=== PATIENT | male | born 1940 | race Caucasian/White ===

== ENCOUNTER 2024-01-14 08:36 | Emergency (ER) | payer MEDICARE, OTHER, SELFPAY ==
[2024-01-14] VITALS (10 sets, daily range): BP systolic 120–143; BP diastolic 76–93; BMI 26.1
--- NOTE | 2024-01-14 09:00 | EDRN ---
Jeanine SONG in room w/ pt at this time.
--- NOTE | 2024-01-14 09:07 | ED.GENMED ---
History of Present Illness
General
Chief Complaint: Bowel Problem
Source: patient
Exam Limitations: none
Time Seen by Provider: 01/14/24 08:50
Travel History
Have you had any contact with someone who has COVID-19?: No
Do you have any symptoms of coronavirus? Fever > 100 degrees, chills, cough, shortness of breath, sore throat, loss of taste or smell, muscle aches, or headache?: No
History of Present Illness
History of Present Illness:
83-year-old male on Eliquis and atorvastatin presents with constipation that he has been struggling with for about 2 weeks. He has been using MiraLAX increasing his fiber he tried an Ex-Lax pill as well as a fleets enema with poor results. He
notes mild abdominal distention no vomiting. He has dealt with this in the past. No blood in the stool. No fevers. No other complaints at this time
Past History
Past History
ED Past Medical History: Arrthythmia (afib), Cancer (colon), HTN, Hypercholesterolemia and Other (TIA, anemia)
Social History
Tobacco: Former smoker
Alcohol: Occasional
Drug: None
Personal:
Living: with family
Employment: Retired
Family History
Family History: Other (Noncontributory)
Phy Exam
Physical Exam
Physical Exam:
General: Well-appearing male no acute respiratory distress
HEENT: Normocephalic atraumatic
Heart: Regular rate and rhythm no murmurs
Lungs: Clear to auscultation bilaterally no wheezing
Abdomen is soft nontender nondistended no guarding or rebound normal bowel sounds
Extremities: No cyanosis or edema
Rectal exam: No external hemorrhoids. No stool is palpated within the rectum.
Course
Orders/Labs/Results
Orders:
Orders
01/14/24 09:06
CR Abdomen - 2 Views Urgent
Comment:
Reason For Exam: constipation
01/14/24 09:25
Enema- Treatment ONCE
Type: Milk of Molasses
01/14/24 14:16
CT Abd/pelvis W Iv Cont Urgent
Comment:
Reason For Exam: abdominal pain
01/14/24 14:46
Complete Blood Count/With Diff Urgent
Comprehensive Metabolic Panel Urgent
01/14/24 16:46
Magnesium Citrate [Citroma] 300 ml PO ONCE ONE
Abnormal Lab Results
01/14/24
14:46
RBC 4.44 L 10^6/uL
(4.70-6.10)
MPV 11.3 H fL
(7.4-10.4)
Lymphocytes % 19.5 L %
(20.5-51.1)
Glucose 100 H mg/dl
(70-99)
Total Protein 5.7 L g/dl
(6.3-8.2)
Albumin 3.3 L g/dl
(3.5-5.0)
01/14/24 14:46
01/14/24 14:46
Vital Signs
Initial and Last Documented VS:
Initial Vital Signs
Temp Pulse Resp BP Pulse Ox
97.9 F 69 16 136/93 98
01/14/24 08:42 01/14/24 08:42 01/14/24 08:42 01/14/24 08:42 01/14/24 08:42
Last Documented Vital Signs
Temp Pulse Resp BP Pulse Ox
97.9 F 72 16 133/88 97
01/14/24 08:42 01/14/24 16:20 01/14/24 16:20 01/14/24 16:20 01/14/24 16:20
MDM/Problems Addressed
Differential Diagnosis Includes:
Constipation. Abdomen exam is benign. Do not suspect colitis given exam. Rectal exam without any stool to manually disimpact. Will check x-rays
*Critical Care Note
Total Time (30-74mins, 75-104mins- exclusive of procedures): Not Applicable
Update Note
Update Note:
Patient with minimal relief after milk of molasses enema still with some abdominal discomfort. Given age and generalized discomfort will order CT scan to evaluate for any evidence of colitis or partial obstruction.
CT read demonstrates stool in the colon distally
With distention of the colon with no sign of sterile coral colitis. There is slight increased size of the abdominal aortic aneurysm now measuring 4.5 cm. There are lung nodules. There are signs of chronic pancreatitis. Relayed all this
information to the patient and copy of his CAT scan was to the patient. Will prescribe magnesium citrate to be used at home for constipation. Return precautions were given.
ED Attending Note
-
Portions of this chart may have been created with voice recognition software.� Occasional wrong word or��sound alike� substitutions may have occurred due to the inherent limitations of voice recognition software.
Discharge Plan
Departure
Patient Disposition: Home (Routine Discharge)
Date of Disposition: 01/14/24
Time of Disposition: 16:47
Patient with high blood pressure during this ER visit?: No
Discharge Problem:
Acute constipation
Instructions: Constipation, Adult (DC)
Prescriptions:
No Action
Eliquis 5 MG tablet
5 mg PO BID Qty: 60 0RF
atorvastatin 40 MG tablet
40 mg PO QPM
Hold Instructions: Resume on 08/10/23. Resume this ONLY AFTER you finish your Paxlovid medication
Trelegy Ellipta 100-62.5-25 mcg Blister With Device
1 inh INHALATION R DAILY
Citrucel 500 mg Tablet
1,000 mg PO MEALS
albuterol sulfate [Ventolin HFA] 90 mcg/actuation HFA aerosol inhaler
2 puff inhalation R Q6HPRN PRN (Reason: sob)
Eliquis 2.5 mg Tablet
2.5 mg PO BID Qty: 7 0RF
Rx Instructions:
First dose on 08/06/23 evening, patient is to resume his 5 mg BID dosing on 08/10/23 (after finishing Paxlovid)
Paxlovid 300 mg (150 mg x 2)-100 mg Tablets,Dose Pack
See Rx Instructions .ROUTE .COMPLEX Qty: 7 0RF
Rx Instructions:
7 doses (starting on 08/06/23 evening) of the 300-100 mg tablet. Last dose should be on 08/09/23 evening.
Referrals:
Hiram Fish MD [Family Provider] -
Activity Restrictions/Additional Instructions:
Use magnesium citrate as directed. Continue with MiraLAX afterwards. Drink plenty of fluids. A report of your CAT scan was printed and given to you with discharge paperwork. Please follow-up with family doctor otherwise return here for
increasing pain fever vomiting or other concerning findings
Interventions
Interventions:
*Risk Screen - Suicide Last Done: 01/14/24 09:09
*General Assessment Last Done: 01/14/24 09:09
*Neglect/Abuse Screening Last Done: 01/14/24 09:09
ED- Fall Risk Assessment Last Done: 01/14/24 09:09
*ED COVID-19 Vaccine History Last Done: 01/14/24 08:46
FZ-Odnrck-Kituyrbqak Assessment Last Done: 01/14/24 09:09
--- NOTE | 2024-01-14 09:52 | EDRN ---
Ana SONG in room w/ pt.
--- NOTE | 2024-01-14 10:47 | EDRN ---
No whole milk or molasses in ED. THis RN called dietary to send whole milk and molasses at this time.
[2024-01-14 14:54] LABS: % Basophils 0.4 % (0-2); % Eosinophils 2.3 % (0-6); % Immature Granulocytes 0.4 % (0-0.5); % Lymphocytes 19.5 % (20.5-51.1); % Monocytes 7.6 % (1.7-9.3); % Neutrophils 69.8 % (42.2-75.2); Absolute Eosinophils 0.2 10^3/uL (0-0.7); Absolute Lymphocytes 1.4 10^3/uL (1.2-3.4); Absolute Monocytes 0.6 10^3/uL (0.1-0.6); Absolute Neutrophils 5.1 10^3/uL (1.4-6.5); Hematocrit 40.1 % (39.0-52.0); Hemoglobin 13.5 g/dL (13.0-18.0); Mean Corp Hgb Conc. 33.7 g/dL (33.0-37.0); Mean Corpuscular Hgb 30.4 pg (27.0-31.0); Mean Corpuscular Volume 90.3 fL (80.0-94.0); Mean Platelet Volume 11.3 fL (7.4-10.4); Nucleated Red Blood Cells % 0 % (-); Platelet Count 212 10^3/uL (130-400); Red Blood Cell Count 4.44 10^6/uL (4.70-6.10); Red Cell Dist. Width 13.9 % (11.5-14.5); White Blood Cell Count 7.3 10^3/uL (4.8-10.8)
[2024-01-14 15:11] LABS: ALT (SGPT) 31 U/L (0-50); AST (SGOT) 24 U/L (17-59); Albumin 3.3 g/dl (3.5-5.0); Alkaline Phosphatase 79 U/L (38-126); Blood Urea Nitrogen 17 mg/dl (9-20); Calcium 9.2 mg/dl (8.4-10.2); Carbon Dioxide 29 mmol/L (22-30); Chloride 106 mmol/L (98-107); Estimated Creatinine Clearance 86 ml/min; Glucose 100 mg/dl (70-99); Potassium 4.6 mmol/L (3.5-5.1); Sodium 138 mmol/L (135-145); Total Protein 5.7 g/dl (6.3-8.2); eGFR > 60.00
[2024-01-14] MEDS: CITROMA 300 ML PO (17:15)
== END 2024-01-14 17:25 | disposition home or self-care (01) ==
LOC: EMR 08:36
PROVIDERS: Physician Assistant; EMERGENCY PHYSICIAN Emergency Medicine; FAMILY PHYSICIAN Family Medicine
DX: K59.09 Other constipation (principal); I10 Essential (primary) hypertension; I71.43 Infrarenal abdominal aortic aneurysm, without rupture; Z87.891 Personal history of nicotine dependence
CPT/HCPCS: 99285; 74019; 74177; 80053; 85025; Q9967

== ENCOUNTER 2024-01-20 09:39 | Emergency (ER) | payer MEDICARE, OTHER, SELFPAY ==
[2024-01-20 09:41] VITALS: BP 148/78
[2024-01-20 10:26] VITALS: BMI 27.9
[2024-01-20 10:30] VITALS: BP 134/80
[2024-01-20 10:44] LABS: % Basophils 0.5 % (0-2); % Eosinophils 2.6 % (0-6); % Immature Granulocytes 0.4 % (0-0.5); % Lymphocytes 14.6 % (20.5-51.1); % Monocytes 8.8 % (1.7-9.3); % Neutrophils 73.1 % (42.2-75.2); Absolute Eosinophils 0.2 10^3/uL (0-0.7); Absolute Lymphocytes 1.1 10^3/uL (1.2-3.4); Absolute Monocytes 0.7 10^3/uL (0.1-0.6); Absolute Neutrophils 5.6 10^3/uL (1.4-6.5); Hematocrit 40.9 % (39.0-52.0); Mean Corp Hgb Conc. 34.2 g/dL (33.0-37.0); Mean Corpuscular Hgb 30.6 pg (27.0-31.0); Mean Corpuscular Volume 89.5 fL (80.0-94.0); Mean Platelet Volume 11.5 fL (7.4-10.4); Nucleated Red Blood Cells % 0 % (-); Platelet Count 219 10^3/uL (130-400); Red Blood Cell Count 4.57 10^6/uL (4.70-6.10); Red Cell Dist. Width 13.6 % (11.5-14.5); White Blood Cell Count 7.7 10^3/uL (4.8-10.8)
--- NOTE | 2024-01-20 10:50 | ED.GENMED ---
History of Present Illness
General
Chief Complaint: Bowel Problem
Source: patient
Exam Limitations: none
Time Seen by Provider: 01/20/24 09:58
Nursing documentation reviewed up to this point in time: agreed with
Travel History
Have you had any contact with someone who has COVID-19?: No
Do you have any symptoms of coronavirus? Fever > 100 degrees, chills, cough, shortness of breath, sore throat, loss of taste or smell, muscle aches, or headache?: No
History of Present Illness
History of Present Illness:
83-year-old male on Eliquis for A-fib, atorvastatin, colon resection for CA 2017, presents with constipation states last normal bowel movement was 2 to 3 weeks ago, he has had a few very small ones since. He was seen here 6 days ago for
constipation Had obstruction series which showed no evidence of obstruction, had abdominal CT which showed moderate stool throughout the colon, Questionable adhesions on this study.
Pt denies F/C/N/V. Does feel bloated and constipated. Poor appetite for these reasons.
Past History
Past History
ED Past Medical History: Arrthythmia (afib), Cancer (colon), COPD, HTN, Hypercholesterolemia and Other (TIA, anemia)
ED Past Surgical History: Bowel resection (Colon cancer, colon resection 2017)
Social History
Tobacco: Former smoker
Alcohol: Occasional
Drug: None
Personal:
Living: with family
Employment: Retired
Family History
Family History: Other (Noncontributory)
Review of Systems
Review of Systems
Allergies reviewed?: Yes
All Other Systems: ROS reviewed and negative except as documented in HPI and ROS
Constitutional: Denies fever
Respiratory: Denies trouble breathing
Cardiac: Denies chest pain
ABD/GI: Reports abdominal pain, constipated and anorexia; Denies nausea, vomiting, bloody stools or black stools
: Denies dysuria or difficulty voiding
Musculoskeletal: Reports no symptoms
Skin: Reports no symptoms
Neurological: Reports no symptoms
Phy Exam
Physical Exam
Physical Exam:
GENERAL: No acute distress. A&Ox3.
CONSTITUTIONAL: Afebrile.
EYES: PERRL, conjunctivae normal
Neck: Supple
ENMT: moist mucus membranes, Pharynx nl
RESPIRATORY: Regular respirations, nonlabored, lungs clear.
CARDIOVASCULAR: Regular rate and rhythm, no murmurs, no rubs.
GI: Soft, distended, nontender, normal BS
Rectal: Minimal amount of soft brown stool on gloved finger, hematest positive. No palpable stool in rectal vault.
MUSCULOSKELETAL: Moves with ease. Well perfused.
SKIN: Warm, dry, pink
PSYCH: Normal mood and affect. Well kept, interactive and appropriate
NEUROLOGIC: Awake, alert and oriented. No focal neurological deficits
Course
Orders/Labs/Results
Orders:
Orders
01/20/24 10:32
Complete Blood Count/With Diff Urgent
Comprehensive Metabolic Panel Urgent
Lipase Urgent
01/20/24 10:55
CT Abd/pel W Iv And Oral Contr Urgent
Comment:
Reason For Exam: worse abd pain, constipation since Sunday's visit
Iohexol [Omnipaque] See Protocol PO NOW STA
01/20/24 10:58
0.9% Sodium Chloride 1000 ml [Nss] 1,000 ml IV BOLUS
01/20/24 15:43
Lactulose [Duphalac/Chronulac] 20 grams PO NOW STA
Abnormal Lab Results
01/20/24
10:32
RBC 4.57 L 10^6/uL
(4.70-6.10)
MPV 11.5 H fL
(7.4-10.4)
Absolute Lymphs (auto) 1.1 L 10^3/uL
(1.2-3.4)
Absolute Monos (auto) 0.7 H 10^3/uL
(0.1-0.6)
Lymphocytes % 14.6 L %
(20.5-51.1)
Chloride 109 H mmol/L
(98-107)
Total Protein 5.9 L g/dl
(6.3-8.2)
Albumin 3.4 L g/dl
(3.5-5.0)
01/20/24 10:32
01/20/24 10:32
Vital Signs
Initial and Last Documented VS:
Initial Vital Signs
Temp Pulse Resp BP Pulse Ox
97.5 F 67 18 148/78 97
01/20/24 09:41 01/20/24 09:41 01/20/24 09:41 01/20/24 09:41 01/20/24 09:41
Last Documented Vital Signs
Temp Pulse Resp BP Pulse Ox
97.9 F 68 18 138/80 98
01/20/24 16:15 01/20/24 16:15 01/20/24 16:15 01/20/24 16:15 01/20/24 16:15
Inspector Rough Castings consulted with Physician
Inspector Rough Castings consulted with physician?: Yes
Name of Physician Consulted: Nathen
MDM/Problems Addressed
Differential Diagnosis Includes:
Constipation, bowel obstruction
MDM/Problems Addressed:
83-year-old male on Eliquis for A-fib, atorvastatin, colon resection for CA 2017, presents with constipation states last normal bowel movement was 2 to 3 weeks ago, he has had a few very small ones since. He was seen here 6 days ago for
constipation Had obstruction series which showed no evidence of obstruction, had abdominal CT which showed moderate stool throughout the colon, Questionable adhesions on this study.
Pt denies F/C/N/V. Does feel bloated and constipated. Poor appetite for these reasons.
01/20/2024 1126 AM
CBC, CMP unremarkable
Lipase WNL
Case discussed with Dr. Sena who agrees with a repeat CAT scan with p.o. contrast due to the fact that he could have adhesions/bowel obstruction
Pt updated and in agreement.
01/20/[address] abdomen pelvis with p.o. and IV contrast: Radiology report read: IMPRESSION:
No acute inflammatory process within the abdomen or pelvis. No bowel obstruction. Mild colonic fecal burden. Diverticulosis without acute diverticulitis. No obstructive uropathy.
Stable tortuosity and diffuse ectasia of the abdominal aorta. Stable saccular aneurysm of the mid abdominal aorta as well as the mid to distal abdominal aorta. No dissection.
Other stable chronic findings, as described.
Reviewed CAT scan results with patient and
He still feels bloated, I recommended [id number] Gas-X, gave a dose of lactulose here and a prescription to his pharmacy to use it for the next week if needed
Instructed to see his PCP in 3 to 4 days if he is not much better by then.
*Critical Care Note
Total Time (30-74mins, 75-104mins- exclusive of procedures): Not Applicable
ED Attending Note
-
Portions of this chart may have been created with voice recognition software.� Occasional wrong word or��sound alike� substitutions may have occurred due to the inherent limitations of voice recognition software.
Discharge Plan
Departure
Patient Disposition: Home (Routine Discharge)
Date of Disposition: 01/20/24
Time of Disposition: 15:44
Patient with high blood pressure during this ER visit?: No
Condition: Good
Discharge Problem:
Abdominal pain, Constipation
Instructions: Constipation, Adult (DC), Abdominal Pain
Prescriptions:
New
lactulose 20 gram/30 mL solution
20 g PO DAILY PRN (Reason: Constipation) Qty: 300 0RF
No Action
Eliquis 5 MG tablet
5 mg PO BID Qty: 60 0RF
atorvastatin 40 MG tablet
40 mg PO QPM
Hold Instructions: Resume on 08/10/23. Resume this ONLY AFTER you finish your Paxlovid medication
Trelegy Ellipta 100-62.5-25 mcg Blister With Device
1 inh INHALATION R DAILY
Citrucel 500 mg Tablet
1,000 mg PO MEALS
albuterol sulfate [Ventolin HFA] 90 mcg/actuation HFA aerosol inhaler
2 puff inhalation R Q6HPRN PRN (Reason: sob)
Eliquis 2.5 mg Tablet
2.5 mg PO BID Qty: 7 0RF
Rx Instructions:
First dose on 08/06/23 evening, patient is to resume his 5 mg BID dosing on 08/10/23 (after finishing Paxlovid)
Paxlovid 300 mg (150 mg x 2)-100 mg Tablets,Dose Pack
See Rx Instructions .ROUTE .COMPLEX Qty: 7 0RF
Rx Instructions:
7 doses (starting on 08/06/23 evening) of the 300-100 mg tablet. Last dose should be on 08/09/23 evening.
Referrals:
Hiram Fish MD [Family Provider] -
Aiden Eden MD [Active] - Next open appointment
Activity Restrictions/Additional Instructions:
As we discussed, there is nothing worrisome in your workup here today, specifically no significant amount of stool in your colon, no obstruction in your colon.
You were given a dose of lactulose here today and I sent a prescription to your pharmacy that you can take it daily as needed for bowel movement.
Since you have not been eating much, there is probably not much in your bowels to pass
For your feeling of bloating and distention you can try Gas-X [id number] medication and perhaps the lactulose will help.
See your GI Dr. Eden within the next 2 weeks if your symptoms are not improving
Interventions
Interventions:
*Risk Screen - Suicide Last Done: 01/20/24 10:27
*General Assessment Last Done: 01/20/24 09:41
*Neglect/Abuse Screening Last Done: 01/20/24 10:27
ED- Fall Risk Assessment Last Done: 01/20/24 10:28
*ED COVID-19 Vaccine History Last Done: 01/20/24 09:41
*Nursing Disposition Last Done: 01/20/24 16:15
IA-Zlmphs-Grpwhklexb Assessment Last Done: 01/20/24 10:28
Discharge Date and Time
Discharge Date/Time: 01/20/24 16:16
[2024-01-20 10:52] LABS: ALT (SGPT) 32 U/L (0-50); AST (SGOT) 30 U/L (17-59); Albumin 3.4 g/dl (3.5-5.0); Alkaline Phosphatase 74 U/L (38-126); Blood Urea Nitrogen 14 mg/dl (9-20); Calcium 9.5 mg/dl (8.4-10.2); Carbon Dioxide 25 mmol/L (22-30); Chloride 109 mmol/L (98-107); Estimated Creatinine Clearance 76 ml/min; Glucose 94 mg/dl (70-99); Lipase 77 U/L (23-300); Potassium 4.9 mmol/L (3.5-5.1); Sodium 136 mmol/L (135-145); Total Bilirubin 0.8 mg/dl (0.2-1.3); Total Protein 5.9 g/dl (6.3-8.2); eGFR > 60.00
[2024-01-20 11:00] VITALS: BP 128/93
[2024-01-20] MEDS: NSS 1000 IV (11:09)
[2024-01-20] MEDS: OMNIPAQUE 50 ML PO (11:10)
[2024-01-20 14:23] VITALS: BP 127/71
[2024-01-20 15:00] VITALS: BP 139/83
[2024-01-20] MEDS: DUPHALAC/CHRONULAC 20 GRAMS PO (16:03)
[2024-01-20 16:15] VITALS: BP 138/80
== END 2024-01-20 16:16 | disposition home or self-care (01) ==
LOC: EMR 09:39
PROVIDERS: Registered Nurse; EMERGENCY PHYSICIAN Student in an Organized Health Care Education/Training Program; FAMILY PHYSICIAN Family Medicine
DX: R10.9 Unspecified abdominal pain (principal); K59.00 Constipation, unspecified; I48.91 Unspecified atrial fibrillation; J44.9 Chronic obstructive pulmonary disease, unspecified; I10 Essential (primary) hypertension; E78.00 Pure hypercholesterolemia, unspecified; D64.9 Anemia, unspecified; Z79.01 Long term (current) use of anticoagulants; Z85.038 Personal history of other malignant neoplasm of large intestine; Z86.73 Personal history of transient ischemic attack (TIA), and cerebral infarction without residual deficits; Z87.891 Personal history of nicotine dependence
CPT/HCPCS: 99284; 96360; 74177; 80053; 83690; 85025; Q9967

== ENCOUNTER → 2024-06-04 09:57 | Outpatient (REF) | payer MEDICARE, OTHER, SELFPAY | LOC: RCS 09:57 | PROVIDERS: ATTENDING PHYSICIAN Internal Medicine Cardiovascular Disease; FAMILY PHYSICIAN Family Medicine | DX: I48.0 Paroxysmal atrial fibrillation (principal) | CPT/HCPCS: 93005 ==

== ENCOUNTER 2024-09-18 02:57 | Inpatient (IN) | payer MEDICARE, OTHER, SELFPAY ==
[2024-09-17] VITALS (15 sets, daily range): BP systolic 69–130; BP diastolic 51–72; BMI 26.2
[2024-09-17 21:06] LABS: % Basophils 0.5 % (0-2); % Eosinophils 3.5 % (0-6); % Immature Granulocytes 0.4 % (0-0.5); % Lymphocytes 14.1 % (20.5-51.1); % Monocytes 7.5 % (1.7-9.3); Absolute Basophils 0.1 10^3/uL (0-0.2); Absolute Eosinophils 0.4 10^3/uL (0-0.7); Absolute Lymphocytes 1.5 10^3/uL (1.2-3.4); Absolute Monocytes 0.8 10^3/uL (0.1-0.6); Absolute Neutrophils 7.8 10^3/uL (1.4-6.5); Hematocrit 38.3 % (39.0-52.0); Hemoglobin 12.8 g/dL (13.0-18.0); Mean Corp Hgb Conc. 33.4 g/dL (33.0-37.0); Mean Corpuscular Hgb 30.3 pg (27.0-31.0); Mean Corpuscular Volume 90.5 fL (80.0-94.0); Mean Platelet Volume 11.2 fL (7.4-10.4); Nucleated Red Blood Cells % 0 % (-); Platelet Count 248 10^3/uL (130-400); Red Blood Cell Count 4.23 10^6/uL (4.70-6.10); Red Cell Dist. Width 14.3 % (11.5-14.5); White Blood Cell Count 10.6 10^3/uL (4.8-10.8)
[2024-09-17 21:23] LABS: ALT (SGPT) 26 U/L (0-50); AST (SGOT) 23 U/L (17-59); Albumin 3.3 g/dl (3.5-5.0); Alkaline Phosphatase 77 U/L (38-126); Blood Urea Nitrogen 14 mg/dl (9-20); Calcium 9.4 mg/dl (8.4-10.2); Carbon Dioxide 27 mmol/L (22-30); Chloride 107 mmol/L (98-107); Estimated Creatinine Clearance 68 ml/min; Glucose 127 mg/dl (70-99); Potassium 4.6 mmol/L (3.5-5.1); Sodium 141 mmol/L (135-145); Total Bilirubin 0.4 mg/dl (0.2-1.3); Total Protein 5.6 g/dl (6.3-8.2); eGFR > 60.00
[2024-09-17] MEDS: NSS 1000 IV (22:52)
[2024-09-18] VITALS (64 sets, daily range): BP systolic 58–163; BP diastolic 40–76; BMI 26.3
[2024-09-18] MEDS: NSS 500 IV ×2 (00:10→02:07)
--- NOTE | 2024-09-18 00:12 | ED.GENMED ---
History of Present Illness
General
Chief Complaint: Fall
Source: patient and family
Time Seen by Provider: 09/17/24 21:06
History of Present Illness
History of Present Illness:
This is an 84-year-old male who presents after he fell at home. He states he sat a plastic chair at home outside and it broke and he fell onto his right side. Patient states he then was able to stand up and walk. He was able to walk the chair to
the trash cans and back in. He then sat in his recliner and shortly after that pain got worse and he could not get up. Patient presents complaining of pain in the right hip region. He is on Eliquis. He denies head injury. No neck pain or back
pain. No abdominal pain.
Past History
Past History
ED Past Medical History: Arrthythmia (afib), Cancer (colon), COPD, HTN, Hypercholesterolemia and Other (TIA, anemia)
ED Past Surgical History: Bowel resection (Colon cancer, colon resection 2017)
Social History
Tobacco: Former smoker
Alcohol: Occasional
Drug: None
Personal:
Living: with family
Employment: Retired
Family History
Family History: Other (Noncontributory)
Phy Exam
Physical Exam
Physical Exam:
CONSTITUTIONAL Vital signs reviewed, Patient alert and oriented to person, place and time. Well-appearing
HEAD atraumatic, normocephalic.
EYES eyelids normal to inspection, Extraocular muscles intact, Conjunctiva normal, Sclera normal.
NECK normal range of motion, Trachea midline, no jugular venous distention.
RESP no respiratory distress
BACK No obvious deformities
UPPER EXTREMITY Gross Range of motion normal, gross motor strength normal
LOWER EXTREMITY Gross motor strength normal Does have mild pain with internal and external rotation of the hip. . Is able to mildly flex the right Limited due to pain.hip g shortening. No rotation.
NEURO Speech normal, No focal motor deficits include, [place] coma scale 15, Memory normal, Cranial Nerves intact to screening exam.
SKIN Skin warm, dry, and normal in color.
PSYCHIATRIC Patient oriented to person place and time, Normal affect.
Course
Orders/Labs/Results
Orders:
Orders
09/17/24 20:56
Type+Screen Urgent
Complete Blood Count/With Diff Urgent
Comprehensive Metabolic Panel Urgent
09/17/24 21:07
Hip, Right 2-3 Views [CR Hip - RT w/wo Pel 2-3 Vw*] Urgent
Comment:
Reason For Exam: fall
Include a pelvis x-ray?: Yes
09/17/24 22:52
0.9% Sodium Chloride 1000 ml [Nss] 1,000 ml IV BOLUS
09/17/24 23:41
Hydrocodone 5/APAP 325 [[place] 5/325] 2 tablet PO NOW STA
09/18/24 00:[address] Cta A/P W/Wo Urgent
Reason For Exam: fall, hypotensive, gluteal hematoma
Morphine Sulfate 4 mg IV NOW STA
09/18/24 00:12
0.9% Sodium Chloride 500 ml [Nss] 500 ml IV BOLUS
09/18/24 00:13
Prothrombin Complex(Pcc),Human [Kcentra] 2,549 unit Empty Viaflex Container 100 ml [Viaflex Empty Container] 0 ml IV NOW
Does patient have a dx of serious acute active bleeding?: Yes
Does patient have prior history of HIT?: No
09/18/24 00:34
Hemoglobin Urgent
09/18/24 01:10
* Blood Bank Products Urgent
Blood Bank Products: *Packed RBC Leuko(PRBC's)
Quantity: 2
Transfuse Today: Yes
Reason: Bleeding
09/18/24 01:44
HYDROmorphone [Dilaudid] 1 mg IV NOW STA
09/18/24 02:03
Admit/Transfer Patient As Directed
Co-Sign Provider:
Level of Care: Inpatient admission
Assign to:: ICU
Physician / Group: Uhmphrey
Diagnosis: Right Gluteal Hematoma, Acute Blood Loss Anemia
Reason for Hospitalization: Right Gluteal Hematoma, Acute Blood Loss Anemia
Expected length of stay greater than two midnights?: Yes
ELOS- Estimated Length of Stay in days: 3
I certify the patient meets the requirements for IP care: Yes
PRN Pain Medication Management As Directed
May give lesser potent ordered pain med per pt: Yes
preference::
Protocol:: Medication orders for pain may be administered in a
manner that supports deferring to patient preference
when the pt is:
- Requesting an ordered lesser potent pain medication.
Least to most potent pain medications are defined
as: acetaminophen < NSAID < tramadol < opioids
(morphine, oxycodone, hydromorphone).
- Requesting a lesser dose of the same medication IF
ORDERED.
- Requesting a less intrusive route of administration
if both routes are prescribed by the provider (PO <
IV).
09/18/24 02:04
Code Status As Directed
Resuscitation Status: Do not resuscitate
Reached after discussion with pt or family/Healthcare POA: Yes
DNR Bracelet Application ONCE
09/18/24 02:16
0.9% Sodium Chloride 500 ml [Nss] 500 ml IV BOLUS
0.9% Sodium Chloride 500 ml [Nss] 500 ml IV BOLUS
Abnormal Lab Results
09/17/24 09/18/24
20:56 00:34
RBC 4.23 L 10^6/uL
(4.70-6.10)
Hgb 12.8 L g/dL 9.9 L D g/dL
(13.0-18.0) (13.0-18.0)
Hct 38.3 L %
(39.0-52.0)
MPV 11.2 H fL
(7.4-10.4)
Absolute Neuts (auto) 7.8 H 10^3/uL
(1.4-6.5)
Absolute Monos (auto) 0.8 H 10^3/uL
(0.1-0.6)
Lymphocytes % 14.1 L %
(20.5-51.1)
Glucose 127 H mg/dl
(70-99)
Total Protein 5.6 L g/dl
(6.3-8.2)
Albumin 3.3 L g/dl
(3.5-5.0)
Crossmatch IS Only See Detail
09/18/24 00:34
09/17/24 20:56
Vital Signs
Initial and Last Documented VS:
Initial Vital Signs
Temp Pulse Resp BP Pulse Ox
98.3 F 81 18 130/72 97
09/17/24 20:53 09/17/24 20:53 09/17/24 20:53 09/17/24 20:53 09/17/24 20:53
Last Documented Vital Signs
Temp Pulse Resp BP Pulse Ox
97.8 F 68 17 100/60 97
09/18/24 02:29 09/18/24 02:29 09/18/24 02:29 09/18/24 02:29 09/18/24 02:29
MDM/Problems Addressed
MDM/Problems Addressed:
Gluteal hematoma, fall, contusion, therapeutic coagulopathy
*Radiology
Radiology exam reviewed: all reviewed NAD by ED Provider (X-rays show no fracture)
*Pulse Oximetry
Patient hypoxic: no
*Critical Care Note
Total Time (30-74mins, 75-104mins- exclusive of procedures): 45 minutes
Data Reviewed
Review of Other/Old Records Reveals: Discharge Summary (Discharge summary reviewed from July 2023)
Source: patient and spouse
Further Testing Considered But Not Given:
Consider CT head but patient did not hit his head and only fell to his hip
Patient Management
Discussion with other providers: Hospitalist and Ship Washer (Case discussed with interventional radiology)
Escalation/DeEscalation of care consider admission/obs:
84-year-old male who presents after he fell from a plastic chair. No fracture by imaging. On reassessment however the patient was mildly hypotensive and given some IV fluids. On attempt to stand him he got lightheaded and tilted. Reassessing his
right hip region I noted a large gluteal hematoma that developed. CT does show some extravasation. The case was discussed with interventional radiology. He recommends conservative measures for now. Kcentra given. Blood given in light of 3 g
drop. Patient has become normotensive but did have a vasovagal event after getting pain medications while in the emergency department.
ED Attending Note
-
Portions of this chart may have been created with voice recognition software.� Occasional wrong word or��sound alike� substitutions may have occurred due to the inherent limitations of voice recognition software.
Discharge Plan
Departure
Patient Disposition: Admit
Date of Disposition: 09/18/24
Time of Disposition: 00:12
Admit to: IMU
Presentation/result/management discussed w/ accepting MD/DO: Hospitalist
Discharge Problem:
gluteal hematoma, Hemorrhagic shock
Prescriptions:
No Action
Eliquis 5 MG tablet
5 mg PO BID Qty: 60 0RF
atorvastatin 40 MG tablet
40 mg PO QPM
Trelegy Ellipta 100-62.5-25 mcg Blister With Device
1 inh INHALATION R DAILY
albuterol sulfate [Ventolin HFA] 90 mcg/actuation HFA aerosol inhaler
2 puff inhalation R Q6HPRN PRN (Reason: sob)
acetaminophen [Tylenol Extra Strength] 500 mg Tablet
500 mg PO Q6HPRN PRN (Reason: mild pain)
docusate sodium [Colace] 100 mg Capsule
100 mg PO DAILYPRN PRN (Reason: constipation)
Referrals:
Hiram Fish MD [Family Provider] -
Interventions
Interventions:
*Risk Screen - Suicide Last Done: 09/17/24 21:00
*General Assessment Last Done: 09/17/24 21:00
*Neglect/Abuse Screening Last Done: 09/17/24 21:00
*ED COVID-19 Vaccine History Last Done: 09/17/24 21:00
ED-Musculoskeletal Assessment Last Done: 09/17/24 21:20
ED- Neurological Assessment Last Done: 09/17/24 21:20
ED-Skin Assessment Last Done: 09/17/24 23:00
Discharge Date and Time
Print Language: [id number]
[2024-09-18] MEDS: KCENTRA 100 UNIT IV (00:36)
[2024-09-18 01:08] LABS: Hemoglobin 9.9 g/dL (13.0-18.0)
--- NOTE | 2024-09-18 01:39 | HPS.HSE ---
Family Physician
-
Family Physician: Hiram Fish
Chief Complaint
-
R Hip Pain / Fall
History of Present Illness
Patient is an 84y M with PMH significant for A-Fib, AAA and colon / bladder cancers who presents to ED complaining of pain in the R buttock. Patient states that he has been feeling very well of late. This evening he sat down in a plastic chair
and the chair broke - causing him to fall onto his R side. He did not strike his head or lose consciousness. He had no chest pain, dyspnea, etc. He was able to get up unassisted and walked the remnants of broken chair down his driveway to the
trash.
He then went back inside and noted gradual increase in pain in the R buttock area over time. the pain eventually became quite severe and the patient presented to the ED for further evaluation.
Patient takes Eliquis for stroke risk reduction due to A-Fib. His last dose was this evening around 5:30 PM.
During evaluation in the ED, patient was noted to become hypotensive and lightheaded. He did not lose consciousness.
He is currently awake and alert. He appears fairly comfortable at rest, but has severe pain in the R buttocks / hip with any movement.
Medical History
Past Medical History
Past Medical History: Reports Other
Additional Past Medical History:
Paroxysmal Atrial Fibrillation
AAA
BPH
Bladder Cancer
Cecum Adenocarcinoma
COPD
Past Surgical History: Reports Other
Additional Past Surgical History:
Right Hemicolectomy
TURBT
Cataracts
MOHS Surgery
PVI Ablation
Social History
Tobacco: Former Smoker (Quit smoking 15 years ago. > 40 pack years total use.)
Alcohol: Occasional
Drug: None
Family History
Family History: Not pertinent
Allergies / Home Medications
Allergies reflects when Allergies were last updated in [facility].
Home Medications with original date entered in [facility]
Allergy/Medication List:
Allergies
Allergy/AdvReac Type Severity Reaction Status Date / Time
No Known Allergies Allergy Verified 09/17/24 20:53
Home Medications
apixaban 5 mg tablet (Eliquis) 5 mg PO BID ##60 02/14/15
atorvastatin 40 mg tablet 40 mg PO QPM High cholesterol 10/07/18
albuterol sulfate 90 mcg/actuation aerosol inhaler (Ventolin HFA) 2 puff inhalation R Q6HPRN PRN sob 08/04/23
fluticasone fur. 100 mcg-umeclid 62.5 mcg-vilant 25 mcg inhalat.powder (Trelegy Ellipta) 1 inh inhalation R DAILY 08/04/23
acetaminophen 500 mg tablet (Tylenol Extra Strength) 500 mg PO Q6HPRN PRN mild pain 09/17/24
docusate sodium 100 mg capsule (Colace) 100 mg PO DAILYPRN PRN constipation 09/17/24
Review of Systems
-
History Source: Patient
A 12 point ROS was completed and negative except as noted: Yes
Constitutional: Denies Fever or Chills
Respiratory: Denies Cough or Trouble Breathing
Cardiac: Denies Chest Pain or Palpitations
Abdomen/GI: Denies Abdominal Pain, Nausea, Vomiting or Diarrhea
: Denies Dysuria or Frequency
Musculoskeletal: Reports Joint Pain and Joint Swelling; Denies Edema
Neurological: Reports Dizzy; Denies Headache
Psych: Denies Depression or Anxiety
Physical Exam
Vital Signs
Vital Signs
Temp Pulse Resp BP Pulse Ox
98.3 F 85 22 100/58 97
09/17/24 20:53 09/18/24 00:45 09/18/24 00:45 09/18/24 00:45 09/18/24 00:45
Physical Exam
General: Other (84y M in no acute distress at rest.)
HEENT: Moist mucous membranes and PERRLA
Respiratory: Clear; No Wheezes, Rales or Rhonchi
Cardiac: S1/S2 and Regular Rhythm; No Murmur
GI: Soft, Non Tender, Non Distended and Normal Bowel Sounds
Musculoskeletal: Other (Firm / tender over the R superior gluteal region. Area of fluctuance inferiorly with overlying ecchymosis. No erythema or increased warmth.)
Neuro: AO x 3
Laboratory Results
-
09/18/24 00:34
09/17/24 20:56
Laboratory Results
Total Bilirubin 0.4 mg/dl (0.2-1.3) 09/17/24 20:56
AST 23 U/L (17-59) 09/17/24 20:56
ALT 26 U/L (0-50) 09/17/24 20:56
Alkaline Phosphatase 77 U/L (38-126) 09/17/24 20:56
Impression/Plan
-
A/P: Patient is an 84y M with PMH significant for AAA, A-Fib on Eliquis and COPD who presents to ED complaining of R buttock pain s/p fall earlier this evening.
Large Right Gluteal Hematoma
Acute Blood Loss Anemia
Eliquis Coagulopathy
- Admit for further evaluation and treatment.
- Given acute blood loss, hypotension, etc - patient was actively reversed with KCentra in the ED.
- Hgb 12.8 to 9.9 after approximately 3.5 hours.
- Continue pain and increasing firmness / tenderness in the R gluteal region.
- Transfusing 2 units of PRBCs given hypotension and blood loss.
- Hold further anticoagulation.
- CTA done in the ED shows area of active extravasation in the R gluteal area.
- IR will review to see if this area is amenable to intervention / embolization.
- Continue supportive care / medical management for now.
Hypotension secondary to blood / volume loss
- IVFs in the ED with improvement in BP.
- Further volume replacement with PRBCs as noted above.
- Follow BP and provide additional volume support if needed.
- Follow H&H and transfuse further PRBCs if needed.
- Add pressor support if necessary to maintain perfusion.
Paroxysmal Atrial Fibrillation
- Rate controlled on no chronotropic medications.
- Holding Eliquis as noted above.
- Monitor on telemetry.
COPD
- Stable. No current dyspnea, wheezing, etc.
- Continue Trelegy.
- Albuterol PRN.
DVT Prophylaxis: SCDs
Code Status: DNR
[2024-09-18] MEDS: DILAUDID 1 MG IV (02:01)
--- NOTE | 2024-09-18 02:07 | EDRN ---
This FARM EQUIPMENT ASSEMBLER administered ordered IVP Diluadid per EMAR orders. the pts Blood pressure before IVP Dilaudid administration was 107/67. This FARM EQUIPMENT ASSEMBLER diluted the 1mg Dilaudid IVP into a NSS flush and administered it over 3 -5 minutes per EMAR order.
Immediately after administration, the pt became very pale, diaphoretic, and c/o feeling dizzy. the pts repeat blood pressure after Dilaudid IVP administration - 61/40. ER Dr Martins and the admitting hospitalist Dr Yin were brought to the pts
bedside immediately. Per Dr Yin verbal order, 500mL NSS IVF were started and the pt was placed on nasal cannula oxygen. the pt remained awake alert and speaking with staff. the pts Blood pressure eventually normalized with NSS IVF administration.
--- NOTE | 2024-09-18 03:00 | PTCARENOTE ---
Patient received from ED, AAOX3, [employer]. Having pain in right glute with movement. +1 edema to bilateral lower extremities. Bilateral DPs present by doppler. Lungs with scattered exp wheeze throughout, pulse ox 98% on 2L. + tachypnea, + dyspnea
with movement. Abdomen soft. Due to void. Right posterior thigh with bruising. #18 g in RAC with PRBCs infusing. #20 g in LAC flushed and patent, Call medina within reach
[2024-09-18] MEDS: TYLENOL 500 MG PO ×3 (03:19→17:24)
[2024-09-18] MEDS: SPIRIVA RESPIMAT 2.5 MCG 2 PUFF INH (07:21)
[2024-09-18] MEDS: SYMBICORT 80/4.5 MCG INHALER 2 PUFF INH ×2 (07:22→19:37)
[2024-09-18 07:46] LABS: Hematocrit 34.3 % (39.0-52.0); Hemoglobin 11.4 g/dL (13.0-18.0)
[2024-09-18 07:59] LABS: INR 1.03
[2024-09-18 08:00] LABS: APTT 27.9 Sec (23.4-35.0)
[2024-09-18 08:07] LABS: Blood Urea Nitrogen 16 mg/dl (9-20); Calcium 8.3 mg/dl (8.4-10.2); Carbon Dioxide 26 mmol/L (22-30); Chloride 109 mmol/L (98-107); Creatine Phosphokinase 40 U/L (55-170); Estimated Creatinine Clearance 68 ml/min; Glucose 138 mg/dl (70-99); Phosphorus 4.3 mg/dl (2.5-4.5); Potassium 5.6 mmol/L (3.5-5.1); Sodium 141 mmol/L (135-145); eGFR > 60.00
--- NOTE | 2024-09-18 08:26 | PTCARENOTE ---
Pt received in bed @ 0700. AAOx3. Pt stating pain adequately treated by Tylenol; stating 2/10 pain on follow up assessment. Hard of hearing. B/L hearing aids at bedside with battery. bringing in medical clinic manager today. SaO2 97% on 2L. Scattered
expiratory wheeze throughout. Sinus rhythm with 1st AV block and Atrial Fibrilation observed on clinical research monitor. HR 60s - 70s in both rhythms. MAP > 65. +1 B/L LE edema. Dorsalis pedis pulses present by doppler. Legs are warm and pale. (R)
hip/glute with ecchymosis, hematoma present. Bowel sounds present. Abdomen is round. Voided 200ml deng urine on previous shift after arrival from ED. (R) AC #18 and (L) AC #20 flushed. Morning labs drawn and sent. Hgb 9.9 ---> 11.4 after 2 units of
PRBC's administered. Denture and oral care provided.
--- NOTE | 2024-09-18 09:14 | W.PN.UPDATE ---
Update Note
Progress Note Update
- IR consulted last night regarding R gluteal hematoma
- CTA positive for small focus of active bleeding originating from a distal branch of the inferior gluteal artery
- Pt was hypotensive overnight but has responded to fluids and has received 2U PRBCs. Kcentra given for Elquis reversal
- Visited patient this morning - sleeping in bed. VSS. Would continue to treat conservatively, trend h/h. If continues to drop or patient becomes unstable can take to angiography.
--- NOTE | 2024-09-18 10:44 | CON.INTV ---
Addendum entered and electronically signed by Jorge Navarro MD 09/18/24 14:14:
Patient has been transferred to telemetry. Hemoglobin was stable.
Hematoma stable.
Bleeding has stopped.
Hemodynamically stable.
Critical care team will sign off
please call pulmonary if any respiratory issues arise
Original Note:
Consultation
Consultation Request
Date/Time Consultation Requested: 09/18/2024
Date/Time Consultation Performed: 09/18/2024
Requesting Provider: Dr. Yin
Performing Provider: Dr. Jorge Jo
Reason for Consultation: Hemorrhagic shock/right gluteal hematoma
Medical History
-
History of Present Illness:
84-year-old man with past medical history significant for atrial fibrillation, AAA, history of colon/bladder cancer who presented to the emergency room complaining of right buttock pain. Patient had a fall from a plastic chair. Subsequently
developed significant amount of pain on the right pelvis. Since his pain was progressive and severe came to the emergency room for evaluation.
Patient has been on Eliquis for atrial fibrillation. He did become hypotensive and lightheaded in the emergency room.
CT of the abdomen pelvis showed large right hematoma.
Patient received IV fluid resuscitation.
Received transfusion.
This morning feels better still with some discomfort on the pelvis but improved. Denies nausea or vomiting.
Denies shortness of breath at rest.
Hemodynamics improved.
Past Medical History
Past Medical History: Other (SpecimenSee assessment and plan assess)
Social History
Tobacco: Former Smoker (quit 15 years ago, 40+ pack year history)
Alcohol: Occasional
Drug: None
Family History
Family History: Reviewed & Not Pertinent
Allergies / Home Medications
Allergies
Allergy/AdvReac Type Severity Reaction Status Date / Time
No Known Allergies Allergy Verified 09/17/24 20:53
Home Medications
�Medication �Instructions �Recorded �Confirmed �Last Taken �Type
apixaban 5 mg tablet (Eliquis) 5 mg PO BID ##60 02/14/15 09/17/24 09/17/24 Rx
atorvastatin 40 mg tablet 40 mg PO QPM High cholesterol 10/07/18 09/17/24 09/17/24 History
albuterol sulfate 90 mcg/actuation 2 puff inhalation R Q6HPRN PRN sob 08/04/23 09/17/24 Unknown History
aerosol inhaler (Ventolin HFA)
fluticasone fur. 100 mcg-umeclid 1 inh inhalation R DAILY 08/04/23 09/17/24 09/17/24 History
62.5 mcg-vilant 25 mcg
inhalat.powder (Trelegy Ellipta)
acetaminophen 500 mg tablet 500 mg PO Q6HPRN PRN mild pain 09/17/24 09/17/24 09/17/24 History
(Tylenol Extra Strength)
docusate sodium 100 mg capsule 100 mg PO DAILYPRN PRN constipation 09/17/24 09/17/24 Unknown History
(Colace)
Review of Systems
-
History Source: Patient
All other systems: Negative unless noted
Vitals / Labs / Diagnostic Testing
Vital Signs
Temp Pulse Resp BP Pulse Ox
97.6 F 72 15 113/58 97
09/18/24 07:52 09/18/24 08:45 09/18/24 08:45 09/18/24 08:45 09/18/24 08:45
Lab Data
09/18/24 07:33
Laboratory Results
09/18/24
07:33
PT 14.0
INR 1.03
APTT 27.9
Diagnostic Testing:
Physical Exam
-
HEENT: Normocephalic
Cardiovascular: S1/S2
Respiratory: Clear and Non-Labored Respirations
GI: Soft and Non Distended
Neurology: Awake, Alert, AO x 3 and No Motor Deficits
Skin: Warm and Other (Right gluteal hematoma. Slightly tender.)
General: Comfortable
Assessment
-
84-year-old man admitted to the hospital with hemorrhagic shock. Developed right gluteal hematoma after falling from a chair. Required transfusion, anticoagulation discontinued. In the ICU for hemodynamic monitoring.
Hemorrhagic shock
Right gluteal hematoma-status post fall from a chair-in the setting of anticoagulation
Acute blood loss anemia
Conditions present prior admission:
Paroxysmal atrial fibrillation
Abdominal aortic aneurysm
BPH
Bladder cancer
Cecum carcinoma
History of COPD
Right hemicolectomy
TURBT
Cataracts
Mohs surgery
History of ablation
-
Assessment and plan:
Initially hypotensive and lightheaded in the emergency room: Resolved after fluid resuscitation and blood transfusion.
-
CT abdomen pelvis reviewed showed large gluteal hematoma. Interventional radiology evaluated the patient.
Angiogram demonstrated positive small focus of active bleeding originating from the distal branch of the inferior gluteal artery. For now conservative management. If there is rebleed then can consider embolization. IR following peripherally
-
Based on vital signs and response of hemoglobin seems to have stopped.
Status post Kcentra for reversal.
Stopped Eliquis indefinitely for now.
Follow H&H
Continue hemodynamic monitoring
Bedrest for now.
-
COPD: Not bronchospastic. Continue outpatient inhalers, usually on Trelegy.
-
Ok for regular diet
-
DVT prophylaxis with SCD
-
--- NOTE | 2024-09-18 11:29 | CM ---
CM following re: discharge planning.
Reviewed pt's chart, met with pt and pt's spouse at bedside.
Pt is an 84 year old very [place] male, admitted with primary dx of Hemorrhagic shock.
Pt reports he lives with spouse in a mobile home, 2 steps to enter, has 2 supportive children. Pt described himself as independent in all areas [employer], drives, uses a cane when goes outside and keeps his cane in a car. No VN or SNF history.
PT and OT will evaluate the pt to determine a level of care at discharge.
PCP: Hiram Fish
Pharmacy: [facility]
D/C plan: home with anticipated no needs vs VN if recommended by PT/OT.
CM will follow with discharge plan updates as hospitalization progresses
--- NOTE | 2024-09-18 12:19 | PTCARENOTE ---
Pt reassessed. Pain adequately treated with PRN Tylenol. 2L removed; SaO2 96% on room air. Upgraded to regular diet and lunch ordered.
--- NOTE | 2024-09-18 13:35 | W.PN.HOSP.TC ---
Today's Communication/Plan
-
Tx OOICU to Tele
PT/OT tomorrow
monitor labs/vitals
Lokelma x1
Eliquis held
Assessment / Plan
Assessment / Plan
Assessment:
Hemorrhagic shock
Right gluteal hematoma, traumatic from fall from chair. Hematoma exacerbated by Eliquis
Acute blood loss anemia
- CT: Large hematoma within the right gluteal musculature, measuring approximately 16.7 x 10.6 x 7.8 cm. Extravasation of contrast within the hematoma, indicative of active arterial bleeding, arising from a small branch of the right internal iliac
artery.
- IR evaluated, continue conservative management
- s/p 2 unit PRBC, latest Hb is 10.6
- holding Eliquis at least 2 weeks
Hyperkalemia
- Lokelma
- repeat BMP
Paroxysmal atrial fibrillation
Hx of ablation
- monitor tele
- holding Eliquis at least 2 weeks
Abdominal aortic aneurysm on CT
- CT: Bilobed saccular and fusiform aneurysm of the abdominal aorta, measuring up to 4.2 cm in diameter. 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
diameter.
- OP Vascular referral
BPH
Bladder cancer
Hx of TURBT
Cecum carcinoma s/p Right hemicolectomy
History of COPD
- on Trelegy
DVT ppx: SCDs
Code: DNR
Total Critical Care Time 40 minutes. I was immediately available to the patient and staff. I personally examined, reviewed labs, diagnostic images/reports, interpretations, treatment plans, discussed patient care with other providers and family
or caregivers (if patient is unable to make decisions), entered orders as appropriate and documented the medical record.
Anticipated Discharge: > 48 hours
Subjective/Interval History
-
Date of Service: September 18, 2024
pain controlled
Objective Data
-
Labs:
Laboratory Results
09/18/24 09/18/24 09/18/24
07:33 09:04 13:32
Hgb 11.4 L Pending Pending
Hct 34.3 L Pending Pending
PT 14.0
INR 1.03
APTT 27.9
Sodium 141
Potassium 5.6 H
Chloride 109 H
Carbon Dioxide 26
BUN 16
Creatinine 1.0
Glucose 138 H
Calcium 8.3 L
09/18/24
21:04
Hgb Pending
Hct Pending
PT
INR
APTT
Sodium
Potassium
Chloride
Carbon Dioxide
BUN
Creatinine
Glucose
Calcium
Vital Signs:
Vital Signs
Temp Pulse Resp BP Pulse Ox
97.7 F 69 23 113/62 97
09/18/24 11:59 09/18/24 12:15 09/18/24 12:15 09/18/24 12:15 09/18/24 11:15
I&O
09/17/24 09/18/24 09/19/24
06:59 06:59 06:59
Intake Total 1000 / 1000 480 / 480
Output Total 200 / 200 200 / 200
Balance 800 / 800 280 / 280
Physical Exam
-
General: No Apparent Distress
HEENT: Normocephalic and Atraumatic
Respiratory: Negative Wheezes
Cardiac: Regular Rhythm and S1/S2
GI: Soft
Genito-urinary: No Costovertebral Tender
Musculoskeletal: No Edema
Skin: Other (Right gluteal hematoma. Slightly tender.)
Neuro: AO x 3
Hematologic / Lymphatic: No Lymphadenopathy
Psych: Calm
Data Reviewed
-
Critical Care Time (in minutes): 41
Labs: Labs Reviewed by me
[2024-09-18 13:45] LABS: Hematocrit 31.6 % (39.0-52.0); Hemoglobin 10.6 g/dL (13.0-18.0)
[2024-09-18] MEDS: LOKELMA 10 GRAM PO (14:10)
--- NOTE | 2024-09-18 14:14 | PTCARENOTE ---
Pt reassessed. Hematoma remains right hip/right glute. Has not appeared to increase in size. H&H redrawn. Hgb 10.6. New order of Lokelma for K 5.6. Administered without issue. Downgraded to telemetry.
--- NOTE | 2024-09-18 16:22 | PTCARENOTE ---
Received report from Henry Torres PATROLLER at 1500. Received pt at 1515. Pt in bed on arrival, AAOx3, oriented to unit, VSS, tele monitor #27 applied. Pt NSR/afib on monitor. Hematoma assessed by this RN and Henry Torres at bedside. Pt reports minimal pain
at hematoma site. Call medina and belongings within reach.
[2024-09-18 21:50] LABS: Hematocrit 29.6 % (39.0-52.0); Hemoglobin 10.1 g/dL (13.0-18.0)
[2024-09-19] VITALS (8 sets, daily range): BP systolic 111–133; BP diastolic 67–84; PULSE 108; O2SAT 96; BMI 26.2
[2024-09-19] MEDS: TYLENOL 500 MG PO ×2 (01:38→11:50)
[2024-09-19 06:14] LABS: Hematocrit 32.2 % (39.0-52.0); Hemoglobin 10.5 g/dL (13.0-18.0); Mean Corp Hgb Conc. 32.6 g/dL (33.0-37.0); Mean Corpuscular Hgb 30.3 pg (27.0-31.0); Mean Corpuscular Volume 93.1 fL (80.0-94.0); Mean Platelet Volume 11.2 fL (7.4-10.4); Platelet Count 156 10^3/uL (130-400); Red Blood Cell Count 3.46 10^6/uL (4.70-6.10); Red Cell Dist. Width 15.6 % (11.5-14.5); White Blood Cell Count 10.7 10^3/uL (4.8-10.8)
[2024-09-19 06:32] LABS: Blood Urea Nitrogen 16 mg/dl (9-20); Calcium 8.4 mg/dl (8.4-10.2); Carbon Dioxide 24 mmol/L (22-30); Chloride 110 mmol/L (98-107); Estimated Creatinine Clearance 75 ml/min; Glucose 103 mg/dl (70-99); Potassium 4.3 mmol/L (3.5-5.1); Sodium 142 mmol/L (135-145); eGFR > 60.00
[2024-09-19] MEDS: SYMBICORT 80/4.5 MCG INHALER 2 PUFF INH (07:55)
[2024-09-19] MEDS: SPIRIVA RESPIMAT 2.5 MCG 2 PUFF INH (07:55)
--- NOTE | 2024-09-19 11:39 | W.PN.HOSP.TC ---
Today's Communication/Plan
-
1 unit PRBC, then later evening ambulate and if ok, dc home VN
Assessment / Plan
Assessment / Plan
Assessment:
Hemorrhagic shock
Right gluteal hematoma, traumatic from fall from chair. Hematoma exacerbated by Eliquis
Acute blood loss anemia
- CT: Large hematoma within the right gluteal musculature, measuring approximately 16.7 x 10.6 x 7.8 cm. Extravasation of contrast within the hematoma, indicative of active arterial bleeding, arising from a small branch of the right internal iliac
artery.
- IR evaluated, continue conservative management
- holding Eliquis at least 2 weeks; s/p K-centra
- s/p 2 unit PRBC, latest Hb is 10.5 but symptomatic with PT (tachy, SOB), will give 1 additional prior to DC this evening.
Hyperkalemia
- s/p Lokelma, K normalized
- repeat BMP
Paroxysmal atrial fibrillation
Hx of ablation
- monitor tele
- holding Eliquis at least 2 weeks (see above)
Abdominal aortic aneurysm on CT
- CT: Bilobed saccular and fusiform aneurysm of the abdominal aorta, measuring up to 4.2 cm in diameter. 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
diameter.
- OP Vascular referral
BPH
Bladder cancer
Hx of TURBT
Cecum carcinoma s/p Right hemicolectomy
History of COPD
- on Trelegy
DVT ppx: SCDs
Code: DNR
More than 30 minutes spent in discharge including
Final examination of the patient
Summarizing hospital stay
Instructions for continuing care to all relevant caregivers
Preparation of discharge records, prescriptions, and referral forms
Total time spent (in minutes): 41
Anticipated Discharge: Today
Subjective/Interval History
-
Date of Service: September 19, 2024
Hb 10.5 this AM
PT reports patient tachycardic with ambulation and slightly SOB, patient feels it coul be related to pain
Objective Data
-
Labs:
Laboratory Results
09/19/24
05:38
WBC 10.7
Hgb 10.5 L
Hct 32.2 L
Plt Count 156 D
Sodium 142
Potassium 4.3
Chloride 110 H
Carbon Dioxide 24
BUN 16
Creatinine 0.9
Glucose 103 H
Calcium 8.4
Vital Signs:
Vital Signs
Temp Pulse Resp BP Pulse Ox
99.3 F 89 16 126/73 95
09/19/24 11:34 09/19/24 11:34 09/19/24 11:34 09/19/24 11:34 09/19/24 11:34
I&O
09/18/24 09/19/24 09/20/24
06:59 06:59 06:59
Intake Total 1000 / 1000 960 / 960
Output Total 200 / 200 450 / 450
Balance 800 / 800 510 / 510
Physical Exam
-
General: No Apparent Distress
HEENT: Normocephalic and Atraumatic
Respiratory: Negative Wheezes or Rales
Cardiac: Regular Rhythm and S1/S2
GI: Soft and Nontender
Neuro: AO x 3
Psych: Calm
Data Reviewed
-
Total Time Spent with Patient (in minutes): 41
Labs: Labs Reviewed by me
--- NOTE | 2024-09-19 12:01 | W.DS.TRANS ---
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
-
Discharge Instructions:
Sleep Apnea Risk Intermediate
Discharge Diagnosis/Procedures traumatic fall, hemorrhagic shock, R gluteal
hematoma, anemia from blood loss
Diet Regular
Activity As tolerated
Bathing Restrictions None
Other Services VN,PT,OT
Instructions:
Stand-Alone Forms:
Changes to Home Medications: Yes
Discharge Medications:
DC Medications w/original date entered in [employer]
atorvastatin 40 mg tablet 40 mg PO QPM High cholesterol 10/07/18
albuterol sulfate 90 mcg/actuation aerosol inhaler (Ventolin HFA) 2 puff inhalation R Q6HPRN PRN sob 08/04/23
fluticasone fur. 100 mcg-umeclid 62.5 mcg-vilant 25 mcg inhalat.powder (Trelegy Ellipta) 1 inh inhalation R DAILY Lung/Breathing Issues 08/04/23
acetaminophen 500 mg tablet (Tylenol Extra Strength) 500 mg PO Q6HPRN PRN mild pain 09/17/24
docusate sodium 100 mg capsule (Colace) 100 mg PO DAILYPRN PRN constipation 09/17/24
Home Medication Changes
Eliquis stopped until PCP appointment
Pending Results: No
Total time spent discharging patient (in min): 41
--- NOTE | 2024-09-19 12:38 | CM ---
Chart reviewed and case therapist spoke with patient patient and patient has been cleared for discharge today, recommendation is for home with visiting nurses options reviewed with patient and patient has selected [facility], [facility] liaison contacted. Per
physical therapy patient will need a script for a walker, script has been placed on chart.
Plan; Home today with spouse and [facility].
--- NOTE | 2024-09-19 13:10 | VNURNOTE ---
Attempted to meet with pt, nurse was in starting blood transfusion. [facility] Liaison will reach out later.
--- NOTE | 2024-09-19 14:42 | VNURNOTE ---
Home Health Liaison met with patient at bedside to discuss [facility] nurse/therapy, visits, schedule and homebound status. Patient is agreeable and understands that visits at home will be 2-3 x per week to assess and teach medical management.
[facility] brochure provided with contact information. Patient is aware that [facility] will contact them for start of care in 1-2 days after discharge from .
[facility] referral completed in [facility].
[2024-09-19] MEDS: FLUAD (65 yr+) 2024-2025 FORMULA 0.5 ML IM (16:22)
== END 2024-09-19 17:13 | disposition home health service (06) | DRG 913 ==
LOC: 3 WEST ACU 02:57
PROVIDERS: Student in an Organized Health Care Education/Training Program; ADMITTING PHYSICIAN Hospitalist; ATTENDING PHYSICIAN Internal Medicine; CONSULT PHYSICIAN Internal Medicine Critical Care Medicine; EMERGENCY PHYSICIAN Emergency Medicine; FAMILY PHYSICIAN Family Medicine
PROC: 30283B1 Transfusion of Nonautologous 4-Factor Prothrombin Complex Concentrate into Vein, Percutaneous Approach (ICD-10-PCS; 2024-09-18)
PROC: 30233N1 Transfusion of Nonautologous Red Blood Cells into Peripheral Vein, Percutaneous Approach (ICD-10-PCS; 2024-09-18)
PROC: 3E02340 Introduction of Influenza Vaccine into Muscle, Percutaneous Approach (ICD-10-PCS; 2024-09-19)
DX: S35.512A Injury of left iliac artery, initial encounter (principal); R57.8 Other shock; D62 Acute posthemorrhagic anemia; D68.32 Hemorrhagic disorder due to extrinsic circulating anticoagulants; T80.818A Extravasation of other vesicant agent, initial encounter; S30.0XXA Contusion of lower back and pelvis, initial encounter; N40.0 Benign prostatic hyperplasia without lower urinary tract symptoms; I95.89 Other hypotension; E78.00 Pure hypercholesterolemia, unspecified; E87.5 Hyperkalemia; I71.40 Abdominal aortic aneurysm, without rupture, unspecified; I10 Essential (primary) hypertension; J44.9 Chronic obstructive pulmonary disease, unspecified; T45.515A Adverse effect of anticoagulants, initial encounter; I72.3 Aneurysm of iliac artery; I48.0 Paroxysmal atrial fibrillation; Z66 Do not resuscitate; W07.XXXA Fall from chair, initial encounter; Y93.89 Activity, other specified; Y92.007 Garden or yard of unspecified non-institutional (private) residence as the place of occurrence of the external cause; Z85.038 Personal history of other malignant neoplasm of large intestine; Z86.73 Personal history of transient ischemic attack (TIA), and cerebral infarction without residual deficits; Z90.49 Acquired absence of other specified parts of digestive tract; Z79.01 Long term (current) use of anticoagulants; Z87.891 Personal history of nicotine dependence; Z79.51 Long term (current) use of inhaled steroids; Z85.51 Personal history of malignant neoplasm of bladder; Z23 Encounter for immunization; Z90.79 Acquired absence of other genital organ(s)
CPT/HCPCS: 36430; 71045; 73502; 74174; 80048; 80053; 82550; 83735; 84100; 85014; 85018; 85025; 85027; 85610; 85730; 86850; 86900; 86901; 86920; 93005; 94640; 96361; 96374; 96375; 97116; 97162; 97166; 97535; 99291; J7168; P9016; Q9967

== ENCOUNTER → 2024-09-23 16:24 | Outpatient (REF) | payer MEDICARE, OTHER, SELFPAY | LOC: RAD 16:24 | PROVIDERS: ATTENDING PHYSICIAN Family Medicine | DX: M79.89 Other specified soft tissue disorders (principal); T14.8XXA Other injury of unspecified body region, initial encounter; M79.604 Pain in right leg | CPT/HCPCS: 73701; Q9967 ==

== ENCOUNTER 2024-09-24 12:41 | Emergency (ER) | payer MEDICARE, OTHER, SELFPAY ==
[2024-09-24 12:44] VITALS: BP 107/61
[2024-09-24 14:38] VITALS: BP 125/81
--- NOTE | 2024-09-24 14:39 | ED.GENMED ---
History of Present Illness
<Giuseppe Martins DO - Last Filed: 09/24/24 14:39>
General
Chief Complaint: Swelling
Source: patient
Time Seen by Provider: 09/24/24 13:00
<Aaron Fraser Jr., PA-C - Last Filed: 09/24/24 16:42>
General
Source: patient
Exam Limitations: none
Nursing documentation reviewed up to this point in time: agreed with
History of Present Illness
History of Present Illness:
84-year-old male past medical history of A-fib typically taking Eliquis presenting to the emergency department today with concerns of ongoing pain to the right leg. Recently fell off of a plastic chair a week ago. he had significant bleeding to
the right buttock region to the point of hemorrhagic shock. Required ICU stay. Bleeding stopped while here for discharge 1 week ago in stable condition. Today called his primary care doctor and claimed that he had some ongoing and slightly
worsening. He was told to come to the ER for emergent assessment of this
Past History
<DO Ishan Grayson Last Filed: 09/24/24 14:39>
Past History
ED Past Medical History: Arrthythmia (afib), Cancer (colon), COPD, HTN, Hypercholesterolemia and Other (TIA, anemia)
ED Past Surgical History: Bowel resection (Colon cancer, colon resection 2017)
Social History
Tobacco: Former smoker
Alcohol: Occasional
Drug: None
Personal:
Living: with family
Employment: Retired
Family History
Family History: Other (Noncontributory)
Review of Systems
<Aaron Fraser Jr., PA-C - Last Filed: 09/24/24 16:42>
Review of Systems
Allergies reviewed?: Yes
All Other Systems: ROS reviewed and negative except as documented in HPI and ROS
Phy Exam
<Aaron Fraser Jr., PA-C - Last Filed: 09/24/24 16:42>
Physical Exam
Physical Exam:
GENERAL: Alert , in no apparent distress
EYE: pupils equal and reactive
NECK: Supple, no significant adenopathy.
ENT: o/p clr, mmm.
CARDIAC: Regular rate and rhythm .
LUNGS: Clear breath sounds bilaterally, no acute respiratory distress, no wheezes/rales/rhonchi
ABDOMEN: Soft, without focal tenderness, no r/g, no cvat
NEUROLOGICAL: Alert and oriented, no focal neuro deficits
SKIN: Significant bruising throughout the right thigh mainly to the lateral aspect of the buttock. Vague discomfort throughout the thigh but no hardened compartments normal distal pulses normal color and temperature of the distal extremity warm and
dry, skin intact.
MUSCULOSKELETAL: No edema, well perfused.
PSYCH: Normal and appropriate interaction.
Scores
<Aaron Fraser Jr., PA-C - Last Filed: 09/24/24 16:42>
Heart Failure Risk
Heart Failure Risk Score: Not Applicable
Course
<Giuseppe Martins DO - Last Filed: 09/24/24 14:39>
Orders/Labs/Results
Orders:
Orders
09/24/24 14:38
Venous Doppler Lwr Ext Rt [[facility] Venous LOWER Ext RT] Urgent
Comment:
Reason For Exam: right leg pain swelling, recent hematom
09/24/24 16:39
Oxycodone/Acetaminophen [Percocet 5/325] 1 tablet PO NOW STA
Vital Signs
Initial and Last Documented VS:
Initial Vital Signs
Temp Pulse Resp BP Pulse Ox
98.4 F 72 18 107/61 92
09/24/24 12:44 09/24/24 12:44 09/24/24 12:44 09/24/24 12:44 09/24/24 12:44
Last Documented Vital Signs
Temp Pulse Resp BP Pulse Ox
98.4 F 72 18 125/81 96
09/24/24 12:44 09/24/24 12:44 09/24/24 12:44 09/24/24 14:38 09/24/24 14:40
<Aaron Fraser Jr., PA-C - Last Filed: 09/24/24 16:42>
Orders/Labs/Results
Orders:
Orders
09/24/24 14:38
Venous Doppler Lwr Ext Rt [[facility] Periph Venous LOWER Ext RT] Urgent
Comment:
Reason For Exam: right leg pain swelling, recent hematom
09/24/24 16:39
Oxycodone/Acetaminophen [Percocet 5/325] 1 tablet PO NOW STA
Vital Signs
Initial and Last Documented VS:
Initial Vital Signs
Temp Pulse Resp BP Pulse Ox
98.4 F 72 18 107/61 92
09/24/24 12:44 09/24/24 12:44 09/24/24 12:44 09/24/24 12:44 09/24/24 12:44
Last Documented Vital Signs
Temp Pulse Resp BP Pulse Ox
98.4 F 72 18 125/81 96
09/24/24 12:44 09/24/24 12:44 09/24/24 12:44 09/24/24 14:38 09/24/24 14:40
<Aaron Fraser Jr., PA-C - Last Filed: 09/24/24 16:42>
MDM/Problems Addressed
MDM/Problems Addressed:
84-year-old male past medical history of A-fib typically taking Eliquis presenting to the emergency department today with concerns of ongoing pain to the right leg. Recently fell off of a plastic chair a week ago. he had significant bleeding to
the right buttock region to the point of hemorrhagic shock. Required ICU stay. Bleeding stopped while here for discharge 1 week ago in stable condition. Today called his primary care doctor and claimed that he had some ongoing and slightly
worsening. He was told to come to the ER for emergent assessment of this but arrival here patient in no distress normal vital signs normal distal pulses no poikilothermia, normal distal pulses no pallor. Findings are not consistent with
compartment syndrome. No indication for pressure checks at this time. Patient will be given pain medication. Ultrasound was performed that did not show any DVT otherwise patient stable for discharge return precautions given.
<Aaron Fraser Jr., PA-C - Last Filed: 09/24/24 16:42>
*Critical Care Note
Total Time (30-74mins, 75-104mins- exclusive of procedures): Not Applicable
ED Attending Note
<Giuseppe Martins DO - Last Filed: 09/24/24 14:39>
ED Attending Note
Patient seen and examined by attending physician: Yes
I performed the substantive portion of visit, reviewed & personally made and approve the management plan that is documented in note by myself or ARTURO.: Yes
-
Portions of this chart may have been created with voice recognition software.� Occasional wrong word or��sound alike� substitutions may have occurred due to the inherent limitations of voice recognition software.
Discharge Plan
Departure
Patient Disposition: Home (Routine Discharge)
Date of Disposition: 09/24/24
Time of Disposition: 16:39
Patient with high blood pressure during this ER visit?: No
Condition: Good
Covid-19: Not Applicable
Discharge Problem:
Acute leg pain
Prescriptions:
New
oxycodone-acetaminophen [Endocet] 5-325 mg tablet
1 tab PO Q8H PRN (Reason: Pain) Qty: 9 0RF
No Action
atorvastatin 40 MG tablet
40 mg PO QPM
Trelegy Ellipta 100-62.5-25 mcg Blister With Device
1 inh INHALATION R DAILY
albuterol sulfate [Ventolin HFA] 90 mcg/actuation HFA aerosol inhaler
2 puff inhalation R Q6HPRN PRN (Reason: sob)
acetaminophen [Tylenol Extra Strength] 500 mg Tablet
500 mg PO Q6HPRN PRN (Reason: mild pain)
docusate sodium [Colace] 100 mg Capsule
100 mg PO DAILYPRN PRN (Reason: constipation)
Referrals:
Hiram Fish MD [Family Provider] -
Activity Restrictions/Additional Instructions:
You came to the emergency department today with concerns of ongoing discomfort to the leg. No evidence of emergent pathology. You did have an incidental finding on your ultrasound that showed a popliteal venous aneurysm. Please follow-up with the
primary care doctor as an outpatient for this. Otherwise no emergent findings. You can take the prescribed medications to help with symptoms over the next few days.
RIGHT LOWER EXTREMITY: The right common femoral, femoral, popliteal, peroneal, and posterior tibial veins are patent. There is no sonographic evidence for deep venous thrombosis. There is focal aneurysmal dilatation of the distal right popliteal
vein measuring 1.9 x 1.9 cm in AP and transverse dimensions. There is moderate diffuse subcutaneous edema throughout the right lower leg.
IMPRESSION:
1. No sonographic evidence for right lower extremity deep venous thrombosis.
2. 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
3. Moderate diffuse subcutaneous edema throughout the right lower leg.
Interventions
Interventions:
*Risk Screen - Suicide Last Done: 09/24/24 12:44
*General Assessment Last Done: 09/24/24 12:44
*Neglect/Abuse Screening Last Done: 09/24/24 12:46
ED- Cardiac Assessment Last Done: 09/24/24 14:30
ED- Pulmonary Assessment Last Done: 09/24/24 14:30
ED-Skin Assessment Last Done: 09/24/24 14:30
Discharge Date and Time
Print Language: CITIZEN OF [place]
[2024-09-24 14:40] VITALS: BMI 27.2
[2024-09-24 15:00] VITALS: BP 126/72
[2024-09-24] MEDS: PERCOCET 5/325 1 TABLET PO (16:44)
== END 2024-09-24 17:04 | disposition home or self-care (01) ==
LOC: EMR 12:41
PROVIDERS: EMERGENCY PHYSICIAN Emergency Medicine; FAMILY PHYSICIAN Family Medicine
DX: M79.604 Pain in right leg (principal); I48.91 Unspecified atrial fibrillation; Z79.01 Long term (current) use of anticoagulants; Z87.891 Personal history of nicotine dependence
CPT/HCPCS: 99284; 93971

== ENCOUNTER → 2024-10-06 10:53 | Outpatient (REF) | payer MEDICARE, OTHER, SELFPAY ==
[2024-10-06 11:58] LABS: % Basophils 0.4 % (0-2); % Eosinophils 1.6 % (0-6); % Immature Granulocytes 0.5 % (0-0.5); % Lymphocytes 9.5 % (20.5-51.1); % Monocytes 10.2 % (1.7-9.3); % Neutrophils 77.8 % (42.2-75.2); Absolute Eosinophils 0.2 10^3/uL (0-0.7); Absolute Immature Granulocytes 0.1 10^3/uL (0-0.05); Absolute Lymphocytes 0.9 10^3/uL (1.2-3.4); Absolute Neutrophils 7.7 10^3/uL (1.4-6.5); Hematocrit 41.2 % (39.0-52.0); Hemoglobin 13.2 g/dL (13.0-18.0); Mean Corpuscular Hgb 31.7 pg (27.0-31.0); Mean Platelet Volume 10.6 fL (7.4-10.4); Nucleated Red Blood Cells % 0 % (-); Platelet Count 325 10^3/uL (130-400); Red Blood Cell Count 4.16 10^6/uL (4.70-6.10); Red Cell Dist. Width 16.1 % (11.5-14.5); White Blood Cell Count 9.9 10^3/uL (4.8-10.8)
== END ==
LOC: REG 10:53
PROVIDERS: ATTENDING PHYSICIAN Family Medicine
DX: R58 Hemorrhage, not elsewhere classified (principal)
CPT/HCPCS: 36415; 85025

== ENCOUNTER 2025-04-16 14:13 | Emergency (ER) | payer MEDICARE, OTHER, SELFPAY ==
[2025-04-16 14:19] VITALS: BP 129/84
[2025-04-16 14:38] LABS: % Basophils 0.4 % (0-2); % Eosinophils 1.8 % (0-6); % Immature Granulocytes 0.3 % (0-0.5); % Neutrophils 76.5 % (42.2-75.2); Absolute Eosinophils 0.1 10^3/uL (0-0.7); Absolute Lymphocytes 1.1 10^3/uL (1.2-3.4); Absolute Monocytes 0.6 10^3/uL (0.1-0.6); Hematocrit 40.2 % (39.0-52.0); Hemoglobin 13.4 g/dL (13.0-18.0); Mean Corp Hgb Conc. 33.3 g/dL (33.0-37.0); Mean Corpuscular Hgb 31.4 pg (27.0-31.0); Mean Corpuscular Volume 94.1 fL (80.0-94.0); Nucleated Red Blood Cells % 0 % (-); Platelet Count 216 10^3/uL (130-400); Red Blood Cell Count 4.27 10^6/uL (4.70-6.10); Red Cell Dist. Width 13.8 % (11.5-14.5); White Blood Cell Count 7.9 10^3/uL (4.8-10.8)
[2025-04-16 14:54] LABS: ALT (SGPT) 22 U/L (0-50); AST (SGOT) 19 U/L (17-59); Albumin 3.6 g/dl (3.5-5.0); Alkaline Phosphatase 66 U/L (38-126); Carbon Dioxide 27 mmol/L (22-30); Chloride 111 mmol/L (98-107); Glucose 111 mg/dl (70-99); Lipase 57 U/L (23-300); Potassium 4.8 mmol/L (3.5-5.1); Sodium 141 mmol/L (135-145); eGFR > 60.00
[2025-04-16 15:05] LABS: Blood Urea Nitrogen 15 mg/dl (9-20); Total Bilirubin 0.9 mg/dl (0.2-1.3)
[2025-04-16 17:38] VITALS: BMI 26.2
--- NOTE | 2025-04-16 19:16 | ED.GENMED ---
History of Present Illness
General
Chief Complaint: Bowel Problem
Time Seen by Provider: 04/16/25 17:24
History of Present Illness
History of Present Illness:
85-year-old male presents the emergency department for evaluation of constipation for the past 2 weeks. Has had this happen previously enemas. He reports moderate suprapubic abdominal pain but no rectal pain. No blood in the stool. He is not on
any chronic opiates. He has tried MiraLAX, Dulcolax, and senna without improvement
Past History
Past History
ED Past Medical History: Arrthythmia (afib), Cancer (colon), COPD, HTN, Hypercholesterolemia and Other (TIA, anemia)
ED Past Surgical History: Bowel resection (Colon cancer, colon resection 2017)
Social History
Tobacco: Former smoker
Alcohol: Occasional
Drug: None
Personal:
Living: with family
Employment: Retired
Family History
Family History: Other (Noncontributory)
Review of Systems
Review of Systems
Allergies reviewed?: Yes
All Other Systems: ROS reviewed and negative except as documented in HPI and ROS
Phy Exam
Physical Exam
Physical Exam:
GEN: Well appearing, NAD, WDWN
HEENT: Oral mucosa moist, no scleral icterus
Cardiac: Regular rate
Lung: No respiratory distress, no tachypnea
Rectal: No stool in the rectal vault
MSK: No gross deformity or injuries
Skin: Good color, no pallor or jaundice, no rashes
Neuro: AO x3, moves all extremities freely
Psych: Calm, cooperative
Course
Orders/Labs/Results
Orders:
Orders
04/16/25 14:33
Complete Blood Count/With Diff Urgent
Comprehensive Metabolic Panel Urgent
Lipase Urgent
04/16/25 16:13
Obstruct Series W/PA Chest [CR Obstruct Series W/pa Chest] Urgent
Comment:
Reason For Exam: fos
04/16/25 19:19
Lactulose [Duphalac/Chronulac] 20 grams PO NOW STA
Abnormal Lab Results
04/16/25
14:33
RBC 4.27 L 10^6/uL
(4.70-6.10)
MCV 94.1 H fL
(80.0-94.0)
MCH 31.4 H pg
(27.0-31.0)
MPV 11.0 H fL
(7.4-10.4)
Absolute Lymphs (auto) 1.1 L 10^3/uL
(1.2-3.4)
Neutrophils % 76.5 H %
(42.2-75.2)
Lymphocytes % 14.0 L %
(20.5-51.1)
Chloride 111 H mmol/L
(98-107)
Glucose 111 H mg/dl
(70-99)
Total Protein 6.0 L g/dl
(6.3-8.2)
04/16/25 14:33
04/16/25 14:33
Vital Signs
Initial and Last Documented VS:
Initial Vital Signs
Temp Pulse Resp BP Pulse Ox
98.0 F 76 16 129/84 98
04/16/25 14:19 04/16/25 14:19 04/16/25 14:19 04/16/25 14:19 04/16/25 14:19
Last Documented Vital Signs
Temp Pulse Resp BP Pulse Ox
98.0 F 63 20 152/92 98
04/16/25 14:19 04/16/25 19:33 04/16/25 19:33 04/16/25 19:33 04/16/25 19:39
MDM/Problems Addressed
MDM/Problems Addressed:
X-ray shows a nonobstructive bowel gas pattern, no stool in the rectal vault to perform enema. Will recommend laxatives
*Critical Care Note
Total Time (30-74mins, 75-104mins- exclusive of procedures): Not Applicable
ED Attending Note
-
Portions of this chart may have been created with voice recognition software.� Occasional wrong word or��sound alike� substitutions may have occurred due to the inherent limitations of voice recognition software.
Discharge Plan
Departure
Patient Disposition: Home (Routine Discharge)
Date of Disposition: 04/16/25
Time of Disposition: 19:18
Patient with high blood pressure during this ER visit?: No
Discharge Problem:
Constipation
Instructions: Constipation in adults - ED discharge instructions
Prescriptions:
New
lactulose 10 gram/15 mL solution
20 g PO DAILY PRN (Reason: Constipation) Qty: 237 0RF
No Action
atorvastatin 40 MG tablet
40 mg PO QPM
Trelegy Ellipta 100-62.5-25 mcg Blister With Device
1 inh INHALATION R DAILY
albuterol sulfate [Ventolin HFA] 90 mcg/actuation HFA aerosol inhaler
2 puff inhalation R Q6HPRN PRN (Reason: sob)
acetaminophen [Tylenol Extra Strength] 500 mg Tablet
500 mg PO Q6HPRN PRN (Reason: mild pain)
docusate sodium [Colace] 100 mg Capsule
100 mg PO DAILYPRN PRN (Reason: constipation)
oxycodone-acetaminophen [Endocet] 5-325 mg tablet
1 tab PO Q8H PRN (Reason: Pain) Qty: 9 0RF
Referrals:
Hiram Fish MD [Family Provider, Family Practice]
Interventions
Interventions:
*Risk Screen - Suicide Last Done: 04/16/25 14:19
*General Assessment Last Done: 04/16/25 14:19
*Neglect/Abuse Screening Last Done: 04/16/25 17:38
*ED- Fall Risk Assessment Last Done: 04/16/25 17:37
*ED COVID-19 Vaccine History Last Done: 04/16/25 17:37
*Nursing Disposition Last Done: 04/16/25 19:39
DK-[id number]-[id number] Assessment Last Done: 04/16/25 19:33
Discharge Date and Time
Discharge Date/Time: 04/16/25 19:40
Print Language: CONGOL[place]
[2025-04-16] MEDS: DUPHALAC/CHRONULAC 20 GRAMS PO (19:29)
[2025-04-16 19:33] VITALS: BP 152/92
== END 2025-04-16 19:40 | disposition home or self-care (01) ==
LOC: EMR 14:13
PROVIDERS: EMERGENCY PHYSICIAN Emergency Medicine; FAMILY PHYSICIAN Family Medicine
DX: K59.00 Constipation, unspecified (principal); E78.00 Pure hypercholesterolemia, unspecified; I10 Essential (primary) hypertension; I48.91 Unspecified atrial fibrillation; J44.9 Chronic obstructive pulmonary disease, unspecified; Z85.038 Personal history of other malignant neoplasm of large intestine; Z86.73 Personal history of transient ischemic attack (TIA), and cerebral infarction without residual deficits; Z87.891 Personal history of nicotine dependence
CPT/HCPCS: 99283; 74022; 80053; 83690; 85025